=== PATIENT | female | born 1985 | race Caucasian/White ===

== ENCOUNTER 2016-11-29 13:11 | Emergency (ER) | payer OTHER ==
[2016-11-29 13:22] VITALS: BMI 24.5
--- NOTE | 2016-11-29 13:44 | PDOC ---
History of Present Illness - General Chief Complaint: Vaginal Bleeding Stated Complaint: VAGINAL BLEEDING, 10 WKS Time Seen by Provider: 11/29/16 13:42 History Source: Patient Exam Limitations: No Limitations - History of Present Illness Initial Comments: 11/29/16 13:44 CHIEF COMPLAINT: Vaginal bleeding HISTORY OF PRESENT ILLNESS: This is an otherwise healthy 31 year old LMP 5 (no ultrasound yet for this ) who presents to the ED complaining of lower abdominal cramping and vaginal spotting this morning. REVIEW OF SYSTEMS: GENERAL/CONSTITUTIONAL: No fever or chills. No weakness. No weight change. HEAD, EYES, EARS, NOSE AND THROAT: No change in vision. No ear pain or discharge. No sore throat. CARDIOVASCULAR: No chest pain or palpitations. RESPIRATORY: No cough, wheezing, or shortness of breath. GASTROINTESTINAL: No nausea, vomiting, diarrhea or constipation. GENITOURINARY: See HPI. MUSCULOSKELETAL: No joint or muscle swelling or pain. No neck or back pain. SKIN: No rash or easy bruising. NEUROLOGIC: No headache, vertigo, loss of consciousness, or loss of sensation. PSYCHIATRIC: No depression or anxiety. ENDOCRINE: No increased thirst. No abnormal weight change. HEMATOLOGIC/LYMPHATIC: No anemia, easy bleeding, or history of blood clots. ALLERGIC/IMMUNOLOGIC: No hives or skin allergy. No latex allergy. PHYSICAL EXAM: GENERAL: The patient is awake, alert, and fully oriented, in no acute distress. ENT: Pupils equal, round and reactive to light, extraocular movements intact, sclera anicteric, conjunctiva clear. Neck supple. LUNGS: Clear to auscultation bilaterally. Normal excursion. No respiratory distress or use of accessory muscles. CV: RRR, S1/S2, no MRG. Cap refill < 2 sec. ABDOMEN: Soft, non-distended, non-tender. EXTREMITIES: Normal range of motion, no edema. NEUROLOGICAL: Normal speech, normal gait. CN II-XII grossly intact. PSYCH: Normal mood, normal affect. SKIN: Warm, dry, normal turgor, no rashes or lesions noted. 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: Past History - Past Medical History Allergies/Adverse Reactions: Allergies Allergy/AdvReac Type Severity Reaction Status Date / Time No Known Allergies Allergy Verified 11/29/16 13:18 Home Medications: Ambulatory Orders Vits #93/Iron Fum/FA [ Formula Tablet] 1 each PO DAILY Other medical history: dENIES - Immunization History Immunization Up to Date: Yes - Psycho/Social/Smoking Cessation Hx Anxiety: No Suicidal Ideation: No Smoking Status: No Smoking History: Never smoked Number of Cigarettes Smoked Daily: 0 Information on smoking cessation initiated: No Hx Alcohol Use: No Drug/Substance Use Hx: No Substance Use Type: None *Physical Exam - Vital Signs Last Vital Signs Temp Pulse Resp BP Pulse Ox 98.1 F 77 16 115/58 98 11/29/16 13:18 11/29/16 13:18 11/29/16 13:18 11/29/16 13:18 11/29/16 13:18 ED Treatment Course - LABORATORY CBC & Chemistry Diagram: 11/29/16 13:52 11/29/16 13:52 - RADIOLOGY Radiology Studies Ordered: Category Date Time Status <14WKS US [US] Stat Ultrasound 11/29/16 13:43 Ordered Medical Decision Making - Medical Decision Making 11/29/16 13:57 A/P: 31 year old female with first trimester vaginal spotting. 1. Labs including CBC, bhcg, T&S 2. UA 3. Transvaginal u/s 4. Declines analgesia 11/29/16 15:20 Ultrasound reviewed: intrauterine fluid collection that has the appearance of a gestational sac, measurements corresponding to a gestational age of 7 weeks 1 day. Yolk sac is present, however no definite pole is seen. Normal size and texture of ovaries. No adnexal masses or pelvic free fluid. Bhcg is lower than expected for this GA at 4101. Blood type is O+. Will dc with instructions to return for repeat u/s and bhcg. More urgent return precautions reviewed. Results and followup instructions reviewed with assistance of [employer] interpreter #[id number]. *DC/Admit/Observation/Transfer Diagnosis at time of Disposition: Threatened - Discharge Dispostion Disposition: HOME Admit: No - Referrals Referrals: Jae Kellogg MD [Staff Physician] - Call tomorrow (gerontology aide) - Patient Instructions Printed Discharge Instructions: DI for Threatened Additional Instructions: -Return here or see the cushion assembler doctor (referral enclosed) in one week for repeat lab work and ultrasound -Return sooner for heavy bleeding (more than one pad per hour) or any other concerning symptoms Print Language: HEBREW
[2016-11-29 14:03] LABS: BASOPHIL 0.5 % (0-2.0); EOSINOPHIL 0.9 % (0-4.5); MCH 30.3 pg (25.7-33.7); MCHC 34.2 g/dl (32.0-36.0); MEAN CELL VOLUME 88.6 fl (80-96); MEAN PLT VOLUME 9.2 fl (7.5-11.1); NEUTROPHILS 70.1 % (42.8-82.8); PLATELET COUNT 142 K/MM3 (134-434); RDW 13.3 % (11.6-15.6); WHITE BLOOD COUNT 6.2 K/mm3 (4.0-10.0)
[2016-11-29 14:24] LABS: ALBUMIN 3.9 g/dl (3.4-5.0); ANION GAP 10 (8-16); BILIRUBIN,TOTAL 0.4 mg/dL (0.2-1.0); CO2 25 mmol/L (21-32); CREATININE 0.6 mg/dL (0.55-1.02); GLUCOSE,RANDOM 98 mg/dL (74-106); SGOT/AST 18 U/L (15-37); SGPT/ALT 39 U/L (12-78); TOT PROT 7.8 g/dl (6.4-8.2)
[2016-11-29 14:39] LABS: ALK PHOS 68 U/L (45-117)
[2016-11-29 15:36] VITALS: BP 112/66; PULSE 78; TEMP 98.6
== END 2016-11-29 15:32 | disposition home or self-care (01) ==
LOC: JER 13:11
DX: O26.891 Other specified pregnancy related conditions, first trimester (principal); O20.0 Threatened abortion; Z3A.01 Less than 8 weeks gestation of pregnancy
CPT/HCPCS: 36415; 76801-TC; 80053; 84702; 85025; 86850; 86900; 86901; 87086; 99284-25

== ENCOUNTER 2017-11-27 11:35 | Inpatient (IN) | payer OTHER ==
--- NOTE | 2017-11-27 12:30 | HP ---
Past Medical History - Admission Chief Complaint: Labor pain History of Present Illness: 32 yo , presents for labor pain. Upon admission she was 4cm dilated. History Source: Patient Limitations to Obtaining History: No Limitations - Past Surgical History Past Surgical History: Yes: None Hx Myomectomy: No Hx Transabdominal Cerclage: No - Smoking History Smoking history: Never smoked Aproximately how many cigarettes per day: 0 - Alcohol/Substance Use Hx Alcohol Use: No History of Substance Use: reports: None - Social History History of Recent Travel: No Home Medications - Allergies Allergies/Adverse Reactions: Allergies Allergy/AdvReac Type Severity Reaction Status Date / Time No Known Allergies Allergy Verified 11/14/17 12:15 - Home Medications Home Medications: Ambulatory Orders NK [No Known Home Medication] 11/14/17 Family Disease History - Family Disease History Family History: Unremarkable Review of Systems - Review of Systems Constitutional: reports: No Symptoms Eyes: reports: No Symptoms HENT: reports: No Symptoms Neck: reports: No Symptoms Cardiovascular: reports: No Symptoms Respiratory: reports: No Symptoms Gastrointestinal: reports: No Symptoms Genitourinary: reports: Pain Breasts: reports: No Symptoms Reported Musculoskeletal: reports: No Symptoms Integumentary: reports: No Symptoms Neurological: reports: No Symptoms Endocrine: reports: No Symptoms Hematology/Lymphatic: reports: No Symptoms Psychiatric: reports: No Symptoms Pain Intensity: 7 Physical Exam - Maternity Constitutional: Yes: Well Nourished, Poor Hygeine HENT: Yes: Atraumatic Neck: Yes: Supple Cardiovascular: Yes: Regular Rate and Rhythm Lungs: Clear to auscultation Breast(s): Yes: WNL - Abdominal Exam/OB Number of Fetuses: Single Presentation: Vertex - Vaginal Exam/OB Dilatation (cm): 4 Amniotic Membrane Status: Intact - Physical Exam Musculoskeletal: Yes: WNL Extremities: Yes: WNL ...Motor Strength: WNL Psychiatric: Yes: Alert, Oriented Problem List - Problems (1) Pain during labor Code(s): O99.89 - OTH DISEASES AND CONDITIONS COMPL PREG/CHLDBRTH; R52 - PAIN, UNSPECIFIED Assessment/Plan Active labor Admit to L&D Anticipate
[2017-11-27 12:38] LABS: BASO % 0.3 % (0-2.0); EOS % 0.4 % (0-4.5); HEMOGLOBIN 13.3 GM/dL (10.7-15.3); LYMPH % 17.6 % (8-40); MCH 29.8 pg (25.7-33.7); MCHC 34.1 g/dl (32.0-36.0); MEAN CELL VOLUME 87.2 fl (80-96); MEAN PLT VOLUME 10.3 fl (7.5-11.1); MONO % 6.8 % (3.8-10.2); NEUT % 74.9 % (42.8-82.8); PLATELET COUNT 148 K/MM3 (134-434); RBC 4.47 M/mm3 (3.60-5.2); RDW 14.4 % (11.6-15.6); WHITE BLOOD COUNT 6.8 K/mm3 (4.0-10.0)
[2017-11-27 12:39] VITALS: BMI 29.0
[2017-11-27 13:07] LABS: ANION GAP 9 (8-16); BLOOD UREA NITROGEN 10 mg/dL (7-18); CALCIUM 8.6 mg/dL (8.5-10.1); CHLORIDE 109 mmol/L (98-107); CO2 23 mmol/L (21-32); CREATININE 0.6 mg/dL (0.55-1.02); GLUCOSE,RANDOM 88 mg/dL (74-106); POTASSIUM 3.7 mmol/L (3.5-5.1); SODIUM 141 mmol/L (136-145)
[2017-11-27 13:13] LABS: INR 0.88 (0.82-1.09); PROTHROMBIN TIME (PATIENT) 9.9 SEC (9.7-13.0)
[2017-11-27] MEDS ORDERED: DEXTROSE 5%-LACTATED RINGERS 1,000 ML IV SCH (13:15)
[2017-11-27 13:16] LABS: ACTIVATED PTT 28.7 SECONDS (25.2-36.5)
[2017-11-27] MEDS ORDERED: BUTORPHANOL TARTRATE 1 MG/ML VIAL IVPUSH PRN (13:24)
[2017-11-27] MEDS ORDERED: PROMETHAZINE HCL 25 MG/1 ML VIAL IVPUSH PRN (13:25)
[2017-11-27] MEDS ORDERED: BUTORPHANOL TARTRATE 1 MG/ML VIAL ONE ×2 (13:29)
[2017-11-27] MEDS ORDERED: PROMETHAZINE HCL 25 MG/1 ML VIAL ONE (13:29)
[2017-11-27] MEDS ORDERED: OXYTOCIN 30 UNITS in 0.9% NS 30 UNIT/500 ML INFUS.BAG IVPB SCH (13:30)
[2017-11-27] MEDS ORDERED: OXYTOCIN 30 UNITS in 0.9% NS 30 UNIT/500 ML INFUS.BAG IVPB ONE (14:09)
[2017-11-27] MEDS ORDERED: LIDOCAINE HCL 1% PRESERVATIVE FREE - 30ML VIAL ONE (14:48)
[2017-11-27] MEDS ORDERED: BISACODYL 10 MG SUPP.RECT RC PRN (15:05)
[2017-11-27] MEDS ORDERED: WITCH HAZEL 50% (TUCKS) 40 PAD/JAR PAD TP PRN (15:05)
[2017-11-27] MEDS ORDERED: IBUPROFEN 600 MG TABLET (FP) PO PRN (15:05)
[2017-11-27] MEDS ORDERED: BENZOCAINE 20% 57 GM BOTTLE TP PRN (15:05)
[2017-11-27] MEDS ORDERED: METHYLERGONOVINE MALEATE 0.2 MG/1 ML AMP IM PRN (15:05)
[2017-11-27] MEDS ORDERED: BENZOCAINE 28 GM HEMORRHOIDAL OINTMENT TP PRN (15:05)
--- NOTE | 2017-11-27 15:09 | PN ---
Delivery - Delivery Vaginal Delivery: Spontaneous Type of Anesthesia: Local Episiotomy/Laceration: None EBL (cc): 250 Delivery, Single - Feeding Plan Initial Plan: Exclusive throughout hospitalization Remarks - Remarks Remarks: Normal spontaneous vaginal delivery of a live infant girl over intact perineum. Nose / Oropharynx suctioned @ perineum. Cord clamped and cut. Placenta expelled spontaneously intact. Mother in stable condition.
[2017-11-27] MEDS ORDERED: OXYTOCIN 20 UNITS in 0.9% NS 20 UNIT/1,000 ML INFUS.BAG IV SCH (15:15)
[2017-11-28 07:34] LABS: BASO % 0.4 % (0-2.0); EOS % 0.8 % (0-4.5); HEMOGLOBIN 12.4 GM/dL (10.7-15.3); LYMPH % 20.5 % (8-40); MCH 30.1 pg (25.7-33.7); MCHC 34.5 g/dl (32.0-36.0); MEAN CELL VOLUME 87.2 fl (80-96); MEAN PLT VOLUME 10.7 fl (7.5-11.1); MONO % 7.1 % (3.8-10.2); NEUT % 71.2 % (42.8-82.8); PLATELET COUNT 112 K/MM3 (134-434); RBC 4.13 M/mm3 (3.60-5.2); RDW 14.6 % (11.6-15.6); WHITE BLOOD COUNT 8.2 K/mm3 (4.0-10.0)
[2017-11-28] MEDS: FERROUS SO4 325 MG TABLET (FP) PO SCH ×2 (08:49→18:25)
[2017-11-28] MEDS: PRENATAL VITAMINS W/ FOLIC ACID TABLET (FP) PO SCH (09:28)
[2017-11-28] MEDS ORDERED: DIPHTH,PERTUSS(ACELL),TET 0.5 ML DISP.SYRIN IM ONE (14:00)
--- NOTE | 2017-11-28 15:33 | PN ---
Post Progress Note - Subjective Subjective: 32 yo Para 3 status post vaginal delivery, seen and evaluated. Doing well. Post Day: 1 Type of Delivery: Vital Signs: Vital Signs Temperature 98.2 F 11/28/17 14:00 Pulse Rate 70 11/28/17 14:00 Respiratory Rate 20 11/28/17 14:00 Blood Pressure 100/48 11/28/17 14:00 O2 Sat by Pulse Oximetry (%) 100 11/27/17 15:45 Breast Exam: Yes: Soft Uterus: Yes: Fundus Firm Abdomen/GI: Yes: Abdomen soft, Other Lochia: Yes: Rubra Lochia, amount: Moderate Extremities: Yes: Calves non-tender Perineum: Yes: Intact Activity: Ambulating - Labs Labs: CBC WBC 8.2 K/mm3 (4.0-10.0) 11/28/17 07:00 RBC 4.13 M/mm3 (3.60-5.2) 11/28/17 07:00 Hgb 12.4 GM/dL (10.7-15.3) 11/28/17 07:00 Hct 36.0 % (32.4-45.2) 11/28/17 07:00 MCV 87.2 fl (80-96) 11/28/17 07:00 MCH 30.1 pg (25.7-33.7) 11/28/17 07:00 MCHC 34.5 g/dl (32.0-36.0) 11/28/17 07:00 RDW 14.6 % (11.6-15.6) 11/28/17 07:00 Plt Count 112 K/MM3 (134-434) L D 11/28/17 07:00 MPV 10.7 fl (7.5-11.1) 11/28/17 07:00 Absolute Neuts (auto) 5.9 # 11/28/17 07:00 Neutrophils % 71.2 % (42.8-82.8) 11/28/17 07:00 Lymphocytes % 20.5 % (8-40) 11/28/17 07:00 Monocytes % 7.1 % (3.8-10.2) 11/28/17 07:00 Eosinophils % 0.8 % (0-4.5) D 11/28/17 07:00 Basophils % 0.4 % (0-2.0) 11/28/17 07:00 Nucleated RBC % 0 % (0-0) 11/28/17 07:00 Problem List - Problems (1) Pain during labor Code(s): O99.89 - OTH DISEASES AND CONDITIONS COMPL PREG/CHLDBRTH; R52 - PAIN, UNSPECIFIED (2) Status post normal vaginal delivery Code(s): [id number] - Assessment/Plan Status post vaginal delivery Stable Continue routine care
[2017-11-28] MEDS: ACETAMINOPHEN 325 MG TABLET (FP) PO PRN (21:07)
[2017-11-28] MEDS ORDERED: SENNOSIDES/DOCUSATE COMBO (SENNA PLUS) TABLET (UD) PO PRN (22:00)
--- NOTE | 2017-11-29 07:51 | DS ---
Physical Exam-UI SOFTWARE DEVELOPER Vital Signs: Vital Signs Temperature 97.9 F 11/28/17 21:03 Pulse Rate 70 11/28/17 21:03 Respiratory Rate 20 11/28/17 21:03 Blood Pressure 94/50 11/28/17 21:03 O2 Sat by Pulse Oximetry (%) 100 11/27/17 15:45 Constitutional: Yes: Well Nourished Eyes: Yes: Conjunctiva Clear HENT: Yes: Atraumatic Neck: Yes: Supple Cardiovascular: Yes: Regular Rate and Rhythm Respiratory: Yes: Regular Gastrointestinal: Yes: Normal Bowel Sounds External Genitalia: Yes: Normal Vaginal Exam: Yes: Normal Cervix: Yes: Normal Uterus: Yes: Firm ....Post : Yes: Uterus firm, Moderate lochia serosa Breast(s): Yes: WNL Musculoskeletal: Yes: WNL Extremities: Yes: WNL Neurological: Yes: Alert, Oriented ...Motor Strength: WNL Psychiatric: Yes: Alert, Oriented Labs: CBC, BMP 11/28/17 07:00 11/27/17 12:31 Delivery - Delivery Vaginal Delivery: Spontaneous Type of Anesthesia: None Episiotomy/Laceration: None EBL (cc): 250 Delivery, Single - Stages of Labor Date 1st Stage Initiatied: 11/27/17 Time 1st Stage Initiated: 10:00 Date 2nd Stage Initiated: 11/27/17 Time 2nd Stage Initiated: 14:45 Date of Delivery: 11/27/17 Time of Delivery: 14:55 Time Placenta Delivered: 15:00 - Condition of 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 Produce Sorter/Experimental Plastics Fabricator Present: No Gender: Female Weight: 6 lb 15 oz Position: Left, OA Total Hours ROM (Hrs/Mins): 10 MINS - 1 Minute Total Score: 9 5 Minutes Total Score: 9 - Feeding Plan Initial Plan: Exclusive throughout hospitalization Discharge Summary Reason For Visit: LABOR Current Active Problems Pain during labor (Acute) Status post normal vaginal delivery (Acute) Procedures: Principal: Normal spontaneous vaginal delivery Hospital Course: Routine care Condition: Good - Instructions Diet, Activity, Other Instructions: Regular diet No douching, no sexual intercourse x 6 weeks F/U in clinic in 6 weeks. Disposition: HOME - Home Medications Comprehensive Discharge Medication List: Ambulatory Orders NK [No Known Home Medication] 11/14/17
[2017-11-29 08:14] VITALS: BP 112/48; PULSE 56; TEMP 98.2
[2017-11-29] MEDS: FERROUS SO4 325 MG TABLET (FP) PO SCH (09:08)
[2017-11-29] MEDS: ACETAMINOPHEN 325 MG TABLET (FP) PO PRN (09:08)
[2017-11-29] MEDS: PRENATAL VITAMINS W/ FOLIC ACID TABLET (FP) PO SCH (09:08)
== END 2017-11-29 11:30 | disposition home or self-care (01) | DRG 560 ==
LOC: JLDR 11:35 → J3W 16:30
PROVIDERS: ADMIT Obstetrics & Gynecology; ATTEND Obstetrics & Gynecology
PROC: 10E0XZZ Delivery of Products of Conception, External Approach (ICD-10-PCS; principal; 2017-11-27)
DX: O80 Encounter for full-term uncomplicated delivery (principal); Z3A.39 39 weeks gestation of pregnancy; Z37.0 Single live birth
CPT/HCPCS: 36415; 59409; 80048; 85025; 85610; 85730; 86593; 86850; 86900; 86901; 90715